=== PATIENT | male | born 1990 ===

== ENCOUNTER 2024-05-09 00:40 | Emergency (ER) | payer OTHER ==
[~2024-05-09] VITALS: Ht 167.6 cm; Wt 65.8 kg
[2024-05-09 00:58] VITALS: PULSE 73; RESP 18; TEMP 97.6
[2024-05-09] MEDS: FLUORESCEIN SOD(OPTH) 1 MG STRP OP ONE (01:20)
[2024-05-09 01:21] VITALS: BP 151/100; PULSE 73; RESP 18; TEMP 97.6; O2SAT 99
== END 2024-05-09 01:24 | disposition home or self-care (01) ==
LOC: FSED 01:02
DX: S00.33XA Contusion of nose, initial encounter (principal); H57.12 Ocular pain, left eye; W20.8XXA Other cause of strike by thrown, projected or falling object, initial encounter; Y92.89 Other specified places as the place of occurrence of the external cause
CPT/HCPCS: 99283